=== PATIENT | male | born 1960 | race Caucasian/White ===

== ENCOUNTER 2016-09-15 11:28 | Emergency (ER) | payer BC ==
[2016-09-15 12:11] VITALS: BP 186/95
[2016-09-15] MEDS ORDERED: Naproxen TAB* 250 MG PO ONE (13:36)
--- NOTE | 2016-09-15 13:44 | UC ---
Neck Pain HPI - HPI Summary HPI Summary: 55 YO MALE AWOKE SUNDAY AM (09/10) WITH HIS ENTIRE RIGHT ARM FEELING NUMB HAS PAIN LOCATED NEAR RIGHT SCAPULA SYMPTOMS HAVE NOT WORSENING THIS WEEK. 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 STATES HIS RIGHT ARM WAS NUMB AND TINGLING THEN AND HE DID NOT REGAIN NORMAL SENSATION FOR ABOUT 2 WEEKS/STATES THIS FEELS SIMILAR NO BOWEL OR BLADDER DYSFUNCTION NO HEADACHE NO CHEST PAIN STATES HIS BP HAS ALWAY RUN HIGH HAS NEVER BEEN ON MEDS FOR IT HAS NOT TAKEN ANYTHING FOR PAIN TODAY TOOK MOTRIN YESTERDAY - History of Current Complaint Chief Complaint: UCBackPain Stated Complaint: NUMBNESS AND TINGLING ARM AND BACK PAIN Time Seen by Provider: 09/15/16 13:27 Hx Obtained From: Patient Onset/Duration Of Injury/Symptoms: Days Mechanism Of Injury: No Known Trauma Timing: Constant Onset/Duration: Lasting Days Severity: Severe Pain Intensity: 7 Pain Scale Used: 0-10 Numeric Location: Discrete At: - PAIN LOCATED NEAR RIGHT SCAPULA Character: Aching, Throbbing Aggravating Factors: Nothing Alleviating Factors: Nothing Associated Signs & Symptoms: Positive: Weakness, Paresthesia Related History: Previous Neck Injury - Risk Factors Meningitis Risk Factors: Negative - Allergies/Home Medications Allergies/Adverse Reactions: Allergies Allergy/AdvReac Type Severity Reaction Status Date / Time Penicillins AdvReac Intermediate Hives Verified 10/29/12 11:26 PMH/Surg Hx/FS Hx/Imm Hx Previously Healthy: Yes Endocrine History Of: Denies: Diabetes Respiratory History Of: Reports: Asthma - Surgical History Surgical History: Yes Surgery Procedure, Year, and Place: RIGHT SHOULDER 1995. HERNIA REPAIR 1999 - Family History Known Family History: Positive: Hypertension - Social History Alcohol Use: Daily Substance Use Type: None Smoking Status (MU): Never Smoked Tobacco Review Of Systems Constitutional: Positive: Negative Skin: Positive: Negative Eyes: Positive: Negative ENT: Positive: Negative Respiratory: Positive: Negative Cardiovascular: Positive: Negative Gastrointestinal: Positive: Negative Genitourinary: Positive: Negative Musculoskeletal: Positive: Myalgia Neurological: Positive: Weakness, Paresthesia, Numbness Psychological: Positive: Negative All Other Systems Reviewed And Are Negative: Yes Physical Exam Triage Information Reviewed: Yes Appearance: Well-Appearing, No Pain Distress, Well-Nourished Vital Signs: Initial Vital Signs Temp 98.8 F 09/15/16 12:07 Pulse 94 09/15/16 12:07 Resp 16 09/15/16 12:07 BP 186/95 09/15/16 12:07 Pulse Ox 100 09/15/16 12:07 Vital Signs Reviewed: Yes Eyes: Positive: Conjunctiva Clear, Other: - EOMI/PERRL. Negative: Conjunctiva Inflamed, Discharge ENT: Positive: Hearing grossly normal. Negative: Nasal congestion, Nasal drainage, Trismus, Muffled/hoarse voice Neck: Positive: Supple, Nontender, No Lymphadenopathy, Other: - PAIN WITH FLEXION. Negative: Nuchal Rigidity, Tenderness @, Enlarged Nodes @ Respiratory: Positive: Lungs clear, Normal breath sounds, No respiratory distress, No accessory muscle use Cardiovascular: Positive: RRR, No Murmur, Brisk Capillary Refill. 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 CERVICAL RADICULOPATHY. RIGHT TRAPEZIUS MYOFASCIAL STRAIN/SPASM. HYPERTENSION Discharge - Discharge Plan Condition: Stable Disposition: HOME Prescriptions: Cyclobenzaprine TAB* [Flexeril TAB*] 5 mg PO TID PRN #21 tab PRN Reason: Spasms NIFEdipine ER TAB* [Procardia Xl TAB*] 30 mg PO DAILY #10 tab.xl Naproxen [Naproxen 500 MG TABS] 500 mg PO BID PRN #30 tab PRN Reason: Pain Patient Education Materials: Muscle Strain (ED), Cervical Radiculopathy (ED), Hypertension (ED) Referrals: Ryan Yost MD [Primary Care Provider] - 3 Days Additional Instructions: TO ER FOR WORSENING SYMPTOMS OR IF YOUR DEVELOP NEW SYMPTOMS YOUR BP IS HIGH AND WE WILL START AN ANTIHYPERTENSIVE WEAR SOFT COLLAR WHEN UP YOU WILL NEED FURTHER INVESTIGATION OF THESE SYMPTOMS CALL YOU MD TODAY AND TRY TO MAKE AN APPT FOR SUNDAY DON'T TAKE FLEXERIL AND DRIVE OR WORK YOUR BP TODAY WAS 186/95 YOUR EKG WAS NORMAL Images Head: 1 - TENDER RIGHT RHOMBOID
--- NOTE | 2016-09-15 14:29 | RAD ---
INDICATION: Right cervical radiculopathy COMPARISON: None TECHNIQUE: Routine five-view imaging was performed FINDINGS: Bones: There are no acute bony findings. There are minor endplate changes and vertebral spurring of the mid cervical spine. There is moderate mid cervical facet arthropathy most prominent at C4-C5 There is minor narrowing at C4-C5. Craniocervical junction: The odontoid and atlantodental interval are normal. Alignment: Normal Disc spaces: The remaining disc spaces are well-maintained Soft tissues: The prevertebral soft tissues are normal. IMPRESSION: MILD MIDCERVICAL OSTEOARTHRITIC CHANGE. IF THERE ARE RADICULAR SYMPTOMS, SUGGEST FOLLOW-UP MR IMAGING
== END 2016-09-15 15:00 | disposition home or self-care (01) ==
LOC: UCEAST 11:28
DX: R20.0 Anesthesia of skin (principal); S46.811A Strain of other muscles, fascia and tendons at shoulder and upper arm level, right arm, initial encounter; X58.XXXA Exposure to other specified factors, initial encounter; Y93.9 Activity, unspecified; Y92.9 Unspecified place or not applicable; M62.838 Other muscle spasm; M47.812 Spondylosis without myelopathy or radiculopathy, cervical region; I10 Essential (primary) hypertension; Z88.0 Allergy status to penicillin
CPT/HCPCS: 72050; 93005; 99203; A9270-GY; G0463

== ENCOUNTER 2017-02-23 13:42 | Emergency (ER) | payer BC ==
[2017-02-23 14:01] VITALS: BP 138/87
--- NOTE | 2017-03-03 13:48 | UC ---
Trini Goodwin Edward, scribed for Sarah Sainz DO on 02/23/17 at 1519 . Skin Complaint HPI - HPI Summary HPI Summary: 56 y/o male presents to [facility] c/o gradual onset region of edema and erythema on chin that has been getting progressively worse (more painful and bigger) for the past couple of days. The pt first noticed these symptoms a couple of days ago. Associated sx: there is a little drainage from the site. Pt has a similar but smaller site on his L cheek. The pain is not alleviated with heat. PMHx asthma, seasonal allergies. FHx cancer, multiple sclerosis. Past medications reviewed on visit. - History of Current Complaint Chief Complaint: UCSkin Time Seen by Provider: 02/23/17 15:10 Stated Complaint: RED SWOLLEN AREA ON CHIN Hx Obtained From: Patient Onset/Duration: Gradual Onset, Lasting Days, Still Present Timing: Constant Onset Severity: Moderate Current Severity: Moderate Pain Intensity: 6 Location: Face - Chin and L cheek Character: Swelling, Pain, Redness Aggravating: Touch Alleviating: Nothing - Not alleviated with heat Associated Signs & Symptoms: Positive: Drainage, Tenderness. Negative: Nausea, Vomiting, Diaphoresis, Shivering, Difficulty Breathing, Fever, Chills, Cough, Wheezing, Chest Pain, Hoarseness, Throat Tightening, Abdominal Pain, Lightheadedness, Syncope - Allergy/Home Medications Allergies/Adverse Reactions: Allergies Allergy/AdvReac Type Severity Reaction Status Date / Time Penicillins AdvReac Intermediate Hives Verified 02/23/17 14:01 Home Medications: Home Medications Ranitidine HCl (Nf) [Zantac] 02/23/17 [History] Review of Systems Constitutional: Negative Skin: Other - Edema and erythema @ chin and L cheek - painful Eyes: Negative ENT: Negative Respiratory: Negative Cardiovascular: Negative Gastrointestinal: Negative Genitourinary: Negative Motor: Negative Neurovascular: Negative Musculoskeletal: Negative Neurological: Negative Psychological: Negative All Other Systems Reviewed And Are Negative: Yes PMH/Surg Hx/FS Hx/Imm Hx - Additional Past Medical History Additional PMH: Positive: seasonal allergies Previously Healthy: No Respiratory History: Asthma - Surgical History Surgical History: Yes Surgery Procedure, Year, and Place: RIGHT SHOULDER 1995. HERNIA REPAIR 1999 - Family History Known Family History: Positive: Hypertension, Other - CA, multpile sclerosis Negative: Cardiac Disease, Diabetes - Social History Occupation: Unemployed Lives: With Family Alcohol Use: Daily Substance Use Type: None Smoking Status (MU): Never Smoked Tobacco Physical Exam Triage Information Reviewed: Yes Appearance: Well-Appearing, No Pain Distress, Well-Nourished Vital Signs: Initial Vital Signs Temp 98.1 F 02/23/17 13:57 Pulse 103 02/23/17 13:57 Resp 16 02/23/17 13:57 BP 138/87 02/23/17 13:57 Pulse Ox 100 02/23/17 13:57 Vital Signs Reviewed: Yes Eyes: Positive: Conjunctiva Clear. Negative: Discharge ENT: Positive: Hearing grossly normal. Negative: Muffled/hoarse voice Neck exam: Normal Neck: Positive: Supple Respiratory: Positive: Lungs clear, Normal breath sounds Cardiovascular: Positive: RRR, No Murmur Musculoskeletal Exam: Normal Neurological Exam: Normal Neurological: Positive: Muscle Tone Normal Psychological Exam: Normal Psychological: Positive: Age Appropriate Behavior Skin Exam: Other - Warm, dry, normal color. 2 cm erythematous patch on the chin with honey-colored exudate. There was an area of oozing there that was cultured. There was also a 2 cm splotchy erythematous patch on the L cheek. Both areas were firm and indurated with no fluctuance. Course/Dx - Course Course Of Treatment: Htn noted. Elevated bp likely d/t pt current condition - Differential Diagnoses - Skin Complaint Differential Diagnoses: Abscess, Cellulitis, Contact Dermatitis, Impetigo - Diagnoses Provider Diagnoses: impetigo, elevated bp without dx of htn Discharge - Discharge Plan Condition: Stable Disposition: HOME Prescriptions: Mupirocin 2% OINT* [Bactroban 2 % Oint*] 1 applic TOPICAL BID #1 tube Patient Education Materials: Mupirocin (On the skin), Impetigo (ED) Referrals: Ryan Yost MD [Primary Care Provider] - If Needed (FOLLOW UP IN 3-5 DAYS IF NOT IMPROVING ) Additional Instructions: Your blood pressure was elevated at this visit. That does not mean you have hypertension, it is probably due to your current condition. Please follow up with your primary care provider. The documentation as recorded by the Trini coats Edward accurately reflects the service I personally performed and the decisions made by , Sarah Sainz DO.
== END 2017-02-23 15:45 | disposition home or self-care (01) ==
LOC: UCEAST 13:42
DX: L01.00 Impetigo, unspecified (principal); R03.0 Elevated blood-pressure reading, without diagnosis of hypertension; J30.2 Other seasonal allergic rhinitis; J45.909 Unspecified asthma, uncomplicated; Z88.0 Allergy status to penicillin
CPT/HCPCS: 87070; 87077; 87205; 87640; 87641; 99212; G0463

== ENCOUNTER → 2017-06-01 09:50 | Emergency (ER) | payer BC ==
[~2017-06-01 09:50] MED LIST: NS 0.9% 1000 ML* 1,000 ML IV ONE
[2017-06-01 10:05] VITALS: BP 162/79
[2017-06-01 11:07] LABS: Urine Bilirubin Negative (Negative); Urine Glucose Negative (Negative); Urine Nitrite Negative (Negative)
[2017-06-01 11:12] LABS: Hematocrit 31 % (42-52); Hemoglobin 9.7 g/dl (14.0-18.0); Mean Corpuscular HGB Conc 32 g/dl (31-36); Mean Corpuscular Hemoglobin 23 pg (27-31); Mean Corpuscular Volume 72 fL (80-94); Mean Platelet Volume 9 um3 (7.4-10.4); Red Blood Count 4.28 10^6/ul (4.0-5.4); Red Cell Distribution Width 16 % (10.5-15); White Blood Count 15.3 10^3/ul (3.5-10.8)
[2017-06-01 11:27] LABS: Albumin 3.8 g/dL (3.2-5.2); BUN/Creatinine Ratio 13.8 (8-20); C Reactive Protein 76.92 mg/L (< 5.00); Calcium 8.9 mg/dL (8.6-10.3); EGFR African American 129.1 (>60); EGFR Non-African American 100.4 (>60); Globulin 2.6 g/dL (2-4); Potassium 3.7 mmol/L (3.5-5.0); Total Bilirubin 0.6 mg/dL (0.2-1.0); Total Protein 6.4 g/dL (6.4-8.9)
[2017-06-01 11:28] LABS: Add Diff/Slide Review? Slide Review Added; Comments Flag Yes
--- NOTE | 2017-06-02 07:39 | ED ---
Addison Goodwin Angela, scribed for Ion Ferreira MD on 06/01/17 at 1024 . GI/ HPI - HPI Summary HPI Summary: This pt is a 56 y/o male [facility] since yesterday. Pt reports he had a hemorrhoidectomy yesterday with Dr. Anderson in [place]. Pt notes he did not urinate before he was discharged yesterday. Pt notes that since yesterday he feels his bladder is full and "like it's going to explode." Pt denies any nausea, vomiting, rectal pain, diarrhea. Bladder scan shows 130 CC in bladder. - History of Current Complaint Chief Complaint: EDUrogenitalProblems Time Seen by Provider: 06/01/17 10:15 Stated Complaint: CANT URINATE Hx Obtained From: Patient Onset/Duration: Started Days Ago - 1, Still Present Timing: Constant, Lasting Days - 1 Pain Intensity: 6 Location of Pain: Suprapubic Pain Characteristics: Pressure, Other: - full bladder Associated Signs and Symptoms: Negative: Back Pain, Nausea, Vomiting, Rectal Pain, Discharge, Diarrhea - Allergy/Home Medications Allergies/Adverse Reactions: Allergies Allergy/AdvReac Type Severity Reaction Status Date / Time Penicillins AdvReac Intermediate Hives Verified 02/23/17 14:01 Home Medications: Home Medications Acetaminophen W/ Codeine [Acetaminophen/Codeine #3 300-30 mg] 1 tab PO Q4HR PRN 06/01/17 [History Confirmed 06/01/17] Beclomethasone 80 MCG MDI(NF) [Qvar 80 MCG MDI(NF)] 1 puff INH DAILY 06/01/17 [ History Confirmed 06/01/17] LevoCETirizine TAB (NF) [Xyzal TAB (NF)] 5 mg PO DAILY 06/01/17 [History Confirmed 06/01/17] PARoxetine HCL TAB* [Paxil TAB*] 20 mg PO DAILY 06/01/17 [History Confirmed 07/18] Ranitidine TAB (NF) [Zantac TAB (NF)] 150 mg PO BID 06/01/17 [History Confirmed 06/01/17] Salmeterol DISKUS (NF) [Serevent Diskus (NF)] 1 puff INH DAILY 06/01/17 [ History Confirmed 06/01/17] PMH/Surg Hx/FS Hx/Imm Hx Endocrine/Hematology History: Denies: Hx Diabetes Cardiovascular History: Reports: Hx Angina - TIGHTNESS WITH sob Denies: Hx Hypertension, Hx Pacemaker/ICD Respiratory History: Reports: Hx Asthma History: Denies: Hx Renal Disease Sensory History: Denies: Hx Hearing Aid Psychiatric History: Denies: Hx Panic Disorder - Surgical History Surgery Procedure, Year, and Place: RIGHT SHOULDER 1995. HERNIA REPAIR 1999 Infectious Disease History: No Infectious Disease History: Denies: Traveled Outside the [place] in Last 30 Days - Family History Known Family History: Positive: Hypertension, Other - CA, multpile sclerosis Negative: Cardiac Disease, Diabetes - Social History Alcohol Use: Daily Substance Use Type: Reports: None Smoking Status (MU): Never Smoked Tobacco Review of Systems Negative: Fever, Chills Eyes: Negative ENT: Negative Cardiovascular: Negative Respiratory: Negative Gastrointestinal: Negative Genitourinary: Other - inability to urinate, full bladder Musculoskeletal: Negative Skin: Negative Neurological: Negative All Other Systems Reviewed And Are Negative: Yes Physical Exam - Summary Physical Exam Summary: VITAL SIGNS: Reviewed. GENERAL: Patient is a well-developed and nourished male who is lying comfortable in the stretcher. Patient is not in any acute respiratory distress. HEAD AND FACE: No signs of trauma. No ecchymosis, hematomas or skull depressions. No sinus tenderness. EYES: PERRLA, EOMI x 2, No injected conjunctiva, no nystagmus. EARS: Hearing grossly intact. Ear canals and tympanic membranes are within normal limits. MOUTH: Oropharynx within normal limits. NECK: Supple, trachea is midline, no adenopathy, no JVD, no carotid bruit, no c- spine tenderness, neck with full ROM. CHEST: Symmetric, no tenderness at palpation LUNGS: Clear to auscultation bilaterally. No wheezing or crackles. CVS: Regular rate and rhythm, S1 and S2 present, no murmurs or gallops appreciated. ABDOMEN: Soft. Lower abdomen distension and tenderness secondary to urinary retention. No rebound no guarding, and no masses palpated. Bowel sounds are normal. EXTREMITIES: FROM in all major joints, no edema, no cyanosis or clubbing. NEURO: Alert and oriented x 3. No acute neurological deficits. Speech is normal and follows commands. SKIN: Dry and warm Triage Information Reviewed: Yes Vital Signs On Initial Exam: Initial Vitals Temp Pulse Resp BP Pulse Ox 97.9 F 102 20 162/79 98 06/01/17 10:02 06/01/17 10:02 06/01/17 10:02 06/01/17 10:02 06/01/17 10:02 Vital Signs Reviewed: Yes Diagnostics - Vital Signs Vital Signs Temp Pulse Resp BP Pulse Ox 06/01/17 10:02 97.9 F 102 20 162/79 98 - Laboratory Result Diagrams: 06/01/17 10:55 06/01/17 10:55 Lab Statement: Any lab studies that have been ordered have been reviewed, and results considered in the medical decision making process. GIGU Course/Dx - Course Assessment/Plan: This pt is a 56 y/o male [facility]/o urinary retention since yesterday. Pt reports he had a hemorrhoidectomy yesterday with Dr. Anderson in [place]. Pt notes he did not urinate before he was discharged yesterday. Pt notes that since yesterday he feels his bladder is full and "like it's going to explode." Pt denies any nausea, vomiting, rectal pain, diarrhea. Bladder scan shows 130 CC in bladder. Test results show WBC of 15.3 slight anemia consistent with recent surgery. Urinalysis is negative for UTI. The pt had a raygoza catheter placed and more than 1500 CC of urine was obtained. The pt felt better and will be discharged home with raygoza catheter and follow up from urology. Pt is hemodynamically stable, alert and oriented x3. - Diagnoses Provider Diagnoses: Urinary retention Discharge - Discharge Plan Condition: Stable Disposition: HOME Patient Education Materials: Urinary Retention in Men (ED) Referrals: Ryan Yost MD [Primary Care Provider] - Additional Instructions: Please follow up with your primary care provider. RETURN TO THE ED FOR ANY WORSENING OR NEW SYMPTOMS. The documentation as recorded by the Addison coats Angela accurately reflects the service I personally performed and the decisions made by , Ion Ferreira MD.
== END | disposition home or self-care (01) ==
LOC: ED 09:50
DX: R33.9 Retention of urine, unspecified (principal); R86.9 Unspecified abnormal finding in specimens from male genital organs; Z88.0 Allergy status to penicillin; Z98.890 Other specified postprocedural states
CPT/HCPCS: 36415; 80053; 81003; 83690; 85025; 86140; 96360; 99282